=== PATIENT | male | born 1990 | race Caucasian/White ===

== ENCOUNTER → 2023-03-20 | Outpatient (CLI) | payer OTHER, SELFPAY ==
[2023-03-20 15:06] LABS: Pathologist Review Will follow
[2023-03-21 14:00] LABS: Semen Analysis Post Vas PATH REVIEW ONLY
== END | disposition home or self-care (01) ==
PROVIDERS: PCP Student in an Organized Health Care Education/Training Program; Referring Provider Student in an Organized Health Care Education/Training Program; Visit Provider Student in an Organized Health Care Education/Training Program
DX: Z98.52 Vasectomy status (principal)
CPT/HCPCS: 89321